=== PATIENT | female | born 1980 | race Two or more races ===

== ENCOUNTER 2017-01-24 22:32 | Emergency (ER) | payer SELFPAY ==
[~2017-01-24] VITALS: Ht 165.1 cm; Wt 63.5 kg
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
[2017-01-24] MEDS ORDERED: METRONIDAZOLE 500 MG TABLET PO ONE (23:00)
[2017-01-24] MEDS ORDERED: CEFTRIAXONE 500 MG VIAL IM ONE (23:00)
[2017-01-24] MEDS ORDERED: AZITHROMYCIN 250 MG TABLET PO ONE (23:00)
[2017-01-24] MEDS ORDERED: CEFTRIAXONE 500 MG VIAL ONE (23:21)
[2017-01-24 23:26] VITALS: BP 127/80
== END 2017-01-24 23:28 | disposition home or self-care (01) ==
LOC: ER 22:34
DX: T74.21XA Adult sexual abuse, confirmed, initial encounter (principal); R10.2 Pelvic and perineal pain
CPT/HCPCS: 99283; A4606; Z7610; J0696